=== PATIENT | female | born 1990 | race Caucasian/White ===

== ENCOUNTER 2023-01-26 14:24 | Outpatient (AMB) | payer OTHER, SELFPAY ==
--- NOTE | 2023-01-26 14:27 | A.OFFVIS_ITS ---
Intake VS Expanded 01/26/23 14:44 Height 5 ft Weight 152 lb 3.2 oz BMI 29.7 BP 138/89 Blood Pressure Location Rt brachial Blood Pressure Position Sitting Pulse 76 Pulse Source Pulse Oximeter Temp 98.1 F Temperature Source Temporal Artery Scan Pulse Oximetry 100 Oxygen Delivery Method Room Air Body Fat 47.2 Body Fat Percentage 31.0 Free Fat Mass 105.0 Muscle Mass 99.6 Visceral Mass 5.0 Water Mass 75.2 BMR 1,439 Intake Visit Reasons: (ov) PO LSG 2018 Allergies No Known Allergies Allergy (Mild, Unverified 03/28/20 17:37) NONE Medication List - Last Reconciled 01/26/23 by SHADY Hinton No Known Home Meds HPI HPI Comments History of Present Illness Details This?is a?29?yo female who is s/p LSG on?04/10/2019. Presents for 3 year 10 month post op visit. Weight at last visit on 11/10/2019 was 125.2 pounds with a BMI of 24, weight today is 152.2 pounds, representing a 27 pound weight gain with a BMI today of 29.7.? No complaints of nausea, emesis, abdominal pain or reflux, or constipation. Had a baby 11 months ago. Present meal plan includes: [employer] [place] shake 2 meals- meat, unsure of ounces coffee- adds Splenda and cream Exercise routine includes: Barbie, 2x/week 1 hour Did the patient ever have any of these conditions and are they resolved or still being treated? GERD: never ANA:? never DM:? never HTN:? never Hyperlipidemia:? never Post op complications:? none Heartburn symptoms? none Score 0-5: 0=no symptoms, 1=noticeable but not bothersome (slight or occasional), 2=noticeable, bothersome but not daily, 3=bothersome and daily, 4=affects daily activities, 5=incapacitating, unable to do daily activities How bad is the heartburn: 0 Heartburn when lying down: 0 Heartburn when standing up: 0 Heartburn after meals: 0 Does heartburn change your diet: 0 Does heartburn wake you up from sleep: 0 Do you have difficulty swallowin Do you have pain with swallowin If you take medication for reflux, does this affect your daily life: 0 Total score: 0 PFSH Surgical History (Updated 01/26/23 @ 14:58 by SHADY Hinton) Hx of cholecystectomy Hx of laparoscopic partial gastrectomy Hx of tubal ligation Social History Alcohol intake: never Patient Tobacco Use Status: Never used Tobacco Physical Exam Const General: cooperative, comfortable and no acute distress Orientation/consciousness: patient oriented x3 GI Other: soft, nontender, nondistended, incisions well healed, no hernia, no masses Neuro General: patient oriented x3 Assessment & Plan Assessment & Plan (1) Overweight: Code(s): E66.3 - Overweight (2) History of sleeve gastrectomy: Code(s): Z90.3 - Acquired absence of stomach [part of] Plan Sent pt meal plan via text of 1 [employer] shake and 2 small meals of 2oz (4 forks) protein, 4 forks veg each. Encouraged pt to measure proteins to make sure she was getting the correct amt of protein. Encouraged her to incorporate more exercise, try for 3 additional days per week of 30 minutes on machine (pt has some cardio machines at home) and track calories. Labs ordered. RTC 1 month per pt preference for accountability. Patient is overweight and is not considered stable at this time. I spent a total of 30 minutes reviewing/updating records, examining the patient and counseling the patient on weight management as detailed above. Orders: Orders Vitamin B12 and Folate Today Z90.3 - Acquired absence of stomach [part of] Comprehensive Met. Panel Today Z90.3 - Acquired absence of stomach [part of] C Reactive Protein Today Z90.3 - Acquired absence of stomach [part of] Ferritin Today Z90.3 - Acquired absence of stomach [part of] Hemoglobin A1c Today Z90.3 - Acquired absence of stomach [part of] Insulin Today Z90.3 - Acquired absence of stomach [part of] IRON PROFILE Today Z90.3 - Acquired absence of stomach [part of] Lipid Panel Today Z90.3 - Acquired absence of stomach [part of] PTHI Today Z90.3 - Acquired absence of stomach [part of] TSH reflex Free T4 Today Z90.3 - Acquired absence of stomach [part of] Vitamin A Today Z90.3 - Acquired absence of stomach [part of] Vitamin B1 Today Z90.3 - Acquired absence of stomach [part of] Vitamin D 25-OH Total Today Z90.3 - Acquired absence of stomach [part of] Zinc Today Z90.3 - Acquired absence of stomach [part of] Complete Blood Count Auto Diff Today Z90.3 - Acquired absence of stomach [part of] Coding Level of Care Code Est Pt Level 4 (25694) Diagnoses Overweight E66.3 History of sleeve gastrectomy Z90.3
--- NOTE | 2023-01-26 14:27 | MHC.OFFVISWM ---
Intake VS Expanded 01/26/23 14:44 Height 5 ft Weight 152 lb 3.2 oz BMI 29.7 BP 138/89 Blood Pressure Location Rt brachial Blood Pressure Position Sitting Pulse 76 Pulse Source Pulse Oximeter Temp 98.1 F Temperature Source Temporal Artery Scan Pulse Oximetry 100 Oxygen Delivery Method Room Air Body Fat 47.2 Body Fat Percentage 31.0 Free Fat Mass 105.0 Muscle Mass 99.6 Visceral Mass 5.0 Water Mass 75.2 BMR 1,439 Intake Visit Reasons: (ov) PO LSG 2019 Allergies No Known Allergies Allergy (Mild, Unverified 03/28/20 17:37) NONE PFSH Surgical History (Updated 01/26/23 @ 14:42 by Madelaine Nunez CMA) Hx of cholecystectomy Hx of laparoscopic partial gastrectomy Hx of tubal ligation Social History (Updated 01/26/23 @ 14:42 by Madelaine Nunez CMA) Alcohol intake: never Patient Tobacco Use Status: Never used Tobacco Coding Diagnoses
[2023-01-26 14:44] VITALS: BP 138/89; PULSE 76; TEMP 36.7; O2SAT 100; BMI 29.7
== END 2023-01-26 15:05 | disposition home or self-care (01) ==
PROVIDERS: PCP Student in an Organized Health Care Education/Training Program; Visit Provider Physician Assistant Surgical
DX: E66.3 Overweight (principal); Z68.29 Body mass index [BMI] 29.0-29.9, adult; Z98.84 Bariatric surgery status; Z90.3 Acquired absence of stomach [part of]
CPT/HCPCS: 99214

== ENCOUNTER → 2023-01-26 14:24 | Outpatient (BNVA) | payer OTHER, SELFPAY | PROVIDERS: PCP Student in an Organized Health Care Education/Training Program; Visit Provider Physician Assistant Surgical | DX: E66.3 Overweight (principal); Z68.29 Body mass index [BMI] 29.0-29.9, adult; Z90.3 Acquired absence of stomach [part of] | CPT/HCPCS: 99212 ==